=== PATIENT | male | born 1975 ===

== ENCOUNTER 2022-06-07 15:52 | Emergency (ER) | payer SELFPAY ==
[~2022-06-07] VITALS: Ht 160 cm; Wt 72.5 kg
[2022-06-07 16:18] LABS: BILIRUBIN,URINE NEGATIVE (NEGATIVE); CLARITY,URINE CLEAR; COLOR,URINE YELLOW; GLUCOSE, URINE (UA) NEGATIVE (NEGATIVE); KETONES,URINE NEGATIVE (NEGATIVE); LEUKOCYTE ESTERASE ,URINE TRACE (NEGATIVE); NITRITE,URINE NEGATIVE (NEGATIVE); PROTEIN,URINE NEGATIVE (NEGATIVE)
[2022-06-07 16:26] LABS: BACTERIA,URINE NEGATIVE /HPF; RBC,URINE 0-2 /HPF
[2022-06-07] MEDS ORDERED: IOHEXOL 350 MG/ML 100 ML (OMNIPAQUE 350) VIAL IV ONE (16:30)
[2022-06-07] MEDS ORDERED: NS 100 ML (IVPB) BAG IV ONE (16:30)
--- NOTE | 2022-06-07 16:30 | ED Abdominal Pain ---
General Chief Complaint: Abdominal/GI Problems Stated Complaint: ABD PAIN Nursing Triage Note: PT AMB TO [facility] 3 WITH BROTHER. BROTHER TRANSLATES FOR PT. PT STATED THAT HE HAS HAD ABD PAIN FOR 2 WEEKS AND HAS PROGRESSIVELY GOTTEN WORSE. Source of Information: Patient Exam Limitations: No Limitations History of Present Illness Date Seen by Provider: Jun 07, 2022 Time Seen by Provider: 16:30 Allergies and Home Medications Allergies Coded Allergies: No Allergy Information Available (Unverified , 06/07/22) Physical Exam Vital Signs Vital Signs - First Documented 06/07/22 06/07/22 16:00 17:44 Temp 38.8 Pulse 89 Resp 20 B/P (MAP) 134/69 (90) Pulse Ox 98 O2 Delivery Room Air Capillary Refill : Less Than 3 Seconds Height/Weight/BMI Height: '" Weight: lbs. oz. kg; 28.00 BMI Method: Progress/Results/Core Measures Results/Orders Lab Results Laboratory Tests Test 06/07/22 16:10 06/07/22 16:23 06/07/22 16:40 Range/Units Urine Color YELLOW Urine Clarity CLEAR Urine pH 7.0 5-9 Urine Specific [place] 1.010 L 1.016-1.022 Urine Protein NEGATIVE NEGATIVE Urine Glucose (UA) NEGATIVE NEGATIVE Urine Ketones NEGATIVE NEGATIVE Urine Nitrite NEGATIVE NEGATIVE Urine Bilirubin NEGATIVE NEGATIVE Urine Urobilinogen 0.2 < = 1.0 MG/DL Urine Leukocyte Esterase TRACE H NEGATIVE Urine RBC (Auto) NEGATIVE NEGATIVE Urine RBC 0-2 /HPF Urine WBC 2-5 /HPF Urine Squamous Epithelial Cells NONE /HPF Urine Renal Epithelial Cells NONE /HPF Urine Crystals NONE /LPF Urine Bacteria NEGATIVE /HPF Urine Casts NONE /LPF Urine Mucus NEGATIVE /LPF Urine Culture Indicated YES White Blood Count 14.6 H 4.3-11.0 10^3/uL Red Blood Count 4.90 4.30-5.52 10^6/uL Hemoglobin 14.3 13.3-17.7 g/dL Hematocrit 42 40-54 % Mean Corpuscular Volume 86 80-99 fL Mean Corpuscular Hemoglobin 29 25-34 pg Mean Corpuscular Hemoglobin Concent 34 32-36 g/dL Red Cell Distribution Width 12.8 10.0-14.5 % Platelet Count 331 130-400 10^3/uL Mean Platelet Volume 9.5 9.0-12.2 fL Immature Granulocyte % (Auto) 0 % Neutrophils (%) (Auto) 75 42-75 % Lymphocytes (%) (Auto) 13 12-44 % Monocytes (%) (Auto) 12 0-12 % Eosinophils (%) (Auto) 0 0-10 % Basophils (%) (Auto) 0 0-10 % Neutrophils # (Auto) 10.9 H 1.8-7.8 10^3/uL Lymphocytes # (Auto) 1.9 1.0-4.0 10^3/uL Monocytes # (Auto) 1.7 H 0.0-1.0 10^3/uL Eosinophils # (Auto) 0.0 0.0-0.3 10^3/uL Basophils # (Auto) 0.1 0.0-0.1 10^3/uL Immature Granulocyte # (Auto) 0.0 0.0-0.1 10^3/uL Neutrophils % (Manual) 79 % Lymphocytes % (Manual) 10 % Monocytes % (Manual) 11 % Blood Morphology Comment NORMAL Fibrinogen 835 H 221-496 MG/DL D-Dimer 3.07 H 0.00-0.49 UG/ML Sodium Level 135 135-145 MMOL/L Potassium Level 3.7 3.6-5.0 MMOL/L Chloride Level 99 98-107 MMOL/L Carbon Dioxide Level 20 L 21-32 MMOL/L Anion Gap 16 H 5-14 MMOL/L Blood Urea Nitrogen 19 H 7-18 MG/DL Creatinine 1.40 H 0.60-1.30 MG/DL Estimat Glomerular Filtration Rate 63 BUN/Creatinine Ratio 14 Glucose Level 81 70-105 MG/DL Calcium Level 9.6 8.5-10.1 MG/DL Corrected Calcium 9.4 8.5-10.1 MG/DL Total Bilirubin 0.8 0.1-1.0 MG/DL Aspartate Amino Transf (AST/SGOT) 18 5-34 U/L Alanine Aminotransferase (ALT/SGPT) 31 0-55 U/L Alkaline Phosphatase 80 40-136 U/L Troponin I < 0.028 <0.028 NG/ML C-Reactive Protein High Sensitivity 15.17 H 0.00-0.50 MG/DL Total Protein 8.4 H 6.4-8.2 GM/DL Albumin 4.2 3.2-4.5 GM/DL Triglycerides Level 106 <150 MG/DL Cholesterol Level 158 < 200 MG/DL LDL Cholesterol Direct 107 1-129 MG/DL VLDL Cholesterol 21 5-40 MG/DL HDL Cholesterol 34 L 40-60 MG/DL Lipase 28 8-78 U/L SARS-CoV-2 RNA (RT-PCR) Not Detected Not Detecte My Orders Orders - PANCHO ELIZALDE [employer] Ua Culture If Indicated (06/07/22 15:55) Ed Iv/Invasive Line Start (06/07/22 16:13) Cbc With Automated Diff (06/07/22 16:13) Comprehensive Metabolic Panel (06/07/22 16:13) Lipase (06/07/22 16:13) Ekg Tracing (06/07/22 16:13) Troponin I [place] (06/07/22 16:13) Ct Abdomen/Pelvis W (06/07/22 16:13) Hs C Reactive Protein (06/07/22 16:13) Covid 19 Inhouse Test (06/07/22 16:13) Lipid Panel (06/07/22 16:13) Iohexol Injection (Omnipaque 350 Mg/Ml 1 (06/07/22 16:30) Ns (Ivpb) (Sodium Chloride 0.9% Ivpb Bag (06/07/22 16:30) Urine Culture (06/07/22 16:10) Fentanyl Inj (Sublimaze Injection) (06/07/22 16:45) Manual Differential (06/07/22 16:23) Ondansetron Injection (Zofran Injectio (06/07/22 16:45) Ns Iv 1000 Ml (Sodium Chloride 0.9%) (06/07/22 17:15) Ketorolac Injection (Toradol Injection) (06/07/22 17:45) Fibrinogen (06/07/22 18:04) Fibrin Degradation Products (06/07/22 18:32) Medications Given in ED Current Medications Medications Dose Ordered Sig/[place] Route Start Time Stop Time Status Last Admin Dose Admin Fentanyl Citrate 50 mcg ONCE ONCE IVP 06/07/22 16:45 06/07/22 16:46 DC 06/07/22 16:46 50 MCG Iohexol 100 ml ONCE ONCE IV 06/07/22 16:30 06/07/22 16:31 DC 06/07/22 17:23 80 ML Ketorolac Tromethamine 30 mg ONCE ONCE IVP 06/07/22 17:45 06/07/22 17:46 DC 06/07/22 17:44 30 MG Ondansetron HCl 4 mg ONCE ONCE IVP 06/07/22 16:45 06/07/22 16:46 DC 06/07/22 16:46 4 MG Sodium Chloride 100 ml ONCE ONCE IV 06/07/22 16:30 06/07/22 16:31 DC 06/07/22 17:23 77 ML Sodium Chloride 1,000 ml @ 999 mls/hr ONCE ONCE IV 06/07/22 17:15 06/07/22 18:15 UNV 06/07/22 17:30 999 MLS/HR Vital Signs/I&O 06/07/22 06/07/22 16:00 17:44 Temp 38.8 Pulse 89 Resp 20 B/P (MAP) 134/69 (90) Pulse Ox 98 O2 Delivery Room Air Blood Pressure Mean: 90 Departure Impression Primary Impression: Abdominal pain Disposition: HOME, SELF-CARE Condition: Improved Departure-Patient Inst. Decision time for Depature: 18:51 Referrals: NO,LOCAL PHYSICIAN (PCP/Family) Primary Care Physician Patient Instructions: Abdominal Pain, Adult ED Add. Discharge Instructions: Plan: 1. I recommend you establish with a primary care provider as you will need additional workup. Please consider filling out peer financial counselor through the hospital for any additional referrals or workup that may be needed. 2. [facility] has many resources available. Please call [phone] to schedule close follow up. Would like you to be seen next week. 3. Take a full strength Aspirin 325mg daily. May take with food if this causes GI upset. 4. We will culture your urine and cover with antibiotics until urine culture results. This typically takes 3 days. If we need to adjust any of your medications we will notify you via telephone. 5. Your CT of your abdomen showed concerns for possible renal infarcts. Some additional test that may help further evaluate your symptoms would be a telemetry monitor, vasculitis disorders, coagulation disorders, renal ultrasound, or MRI could be ordered at the discretion of your primary care provider. 6. Make sure you drink plenty of fluids to flush contrast from your kidneys. Drink plenty of water tonight. 7. Return to ER if you develop any new, concerning, or worsening symptoms. All discharge instructions reviewed with patient and/or family. Voiced understanding. Scripts Cefuroxime Axetil (Cefuroxime) 250 Mg Tablet 250 MG PO BID for 10 Days, #20 TAB 0 Refills Prov: PANCHO ELIZALDE [employer] 06/07/22 Aspirin (Aspirin EC) 325 Mg Tablet.dr 325 MG PO DAILY for 30 Days, #30 TAB 0 Refills Prov: PANCHO ELIZALDE [employer] 06/07/22 PANCHO ELIZALDE [employer] Jun 07, 2022 16:30
[2022-06-07 16:31] LABS: BASOPHILS # (AUTO) 0.1 10^3/uL (0.0-0.1); BASOPHILS % (AUTO) 0 % (0-10); EOSINOPHILS % (AUTO) 0 % (0-10); HEMATOCRIT 42 % (40-54); HEMOGLOBIN 14.3 g/dL (13.3-17.7); LYMPHOCYTES # (AUTO) 1.9 10^3/uL (1.0-4.0); LYMPHOCYTES % (AUTO) 13 % (12-44); MEAN CORPUSCULAR HEMOGLOBIN 29 pg (25-34); MEAN CORPUSCULAR HGB CONC 34 g/dL (32-36); MEAN CORPUSCULAR VOLUME 86 fL (80-99); MEAN PLATELET VOLUME 9.5 fL (9.0-12.2); MONOCYTES # (AUTO) 1.7 10^3/uL (0.0-1.0); MONOCYTES % (AUTO) 12 % (0-12); NEUTROPHILS # (AUTO) 10.9 10^3/uL (1.8-7.8); NEUTROPHILS % (AUTO) 75 % (42-75); PLATELET COUNT 331 10^3/uL (130-400); WHITE BLOOD COUNT 14.6 10^3/uL (4.3-11.0)
[2022-06-07] MEDS ORDERED: ONDANSETRON 4 MG/2 ML (SDV) Z0FRAN IVP ONE (16:45)
[2022-06-07] MEDS ORDERED: fentaNYL INJ 100 MCG/2 ML AMP IVP ONE (16:45)
[2022-06-07 16:50] LABS: ALBUMIN 4.2 GM/DL (3.2-4.5); CHLORIDE 99 MMOL/L (98-107); POTASSIUM 3.7 MMOL/L (3.6-5.0); SODIUM 135 MMOL/L (135-145)
[2022-06-07 16:51] LABS: CALCIUM 9.6 MG/DL (8.5-10.1); LYMPHOCYTES % (MANUAL) 10 %; MONOCYTES % (MANUAL) 11 %; NEUTROPHILS % (MANUAL) 79 %; RBC MORPH NORMAL
[2022-06-07 16:52] LABS: TRIGLYCERIDES 106 MG/DL (<150); VLDL CHOLESTEROL 21 MG/DL (5-40)
[2022-06-07 16:53] LABS: GLUCOSE 81 MG/DL (70-105); TOTAL PROTEIN 8.4 GM/DL (6.4-8.2)
[2022-06-07 16:54] LABS: BILIRUBIN,TOTAL 0.8 MG/DL (0.1-1.0); CARBON DIOXIDE 20 MMOL/L (21-32)
[2022-06-07 16:56] LABS: ALKALINE PHOSPHATASE 80 U/L (40-136); GFR ESTIMATED 63
[2022-06-07 16:57] LABS: BUN/CREATININE RATIO 14; CHOLESTEROL 158 MG/DL (< 200)
[2022-06-07 16:58] LABS: HDL CHOLESTEROL 34 MG/DL (40-60)
[2022-06-07 16:59] LABS: ALANINE AMINOTRANSFERASE 31 U/L (0-55)
[2022-06-07 17:00] LABS: LIPASE 28 U/L (8-78)
[2022-06-07] MEDS ORDERED: NS IV 1000 ML 1,000 ML IV ONE (17:15)
[2022-06-07] MEDS ORDERED: NS IV 1000 ML 1,000 ML ONE (17:26)
[2022-06-07] MEDS ORDERED: KETOROLAC 30 MG/ML VIAL IVP ONE (17:45)
--- NOTE | 2022-06-07 17:56 | Diagnostic Imaging Report ---
PROCEDURE: CT abdomen and pelvis with contrast. TECHNIQUE: Multiple contiguous axial images were obtained through the abdomen and pelvis after administration of intravenous contrast. Auto Exposure Controls were utilized during the CT exam to meet ALARA standards for radiation dose reduction. All CT scans use one or more of the following dose optimizing techniques: automated exposure control, MA and/or KvP adjustment based on patient size and exam type or iterative reconstruction. DATE: June 07, 2022. COMPARISON: None. INDICATION: 47-year-old male, abdominal pain for two weeks which is progressively worsening. FINDINGS: The visualized portions of the lung bases are clear. The heart is not enlarged. There is no pericardial effusion. The liver is unremarkable in size and contour. There is no identified liver lesion. The main, right and left portal veins are patent. The gallbladder is contracted. There is no intrahepatic or extrahepatic bile duct dilation. The main pancreatic duct is not abnormally dilated. Unremarkable appearance of the pancreatic parenchyma. The spleen is normal in size. The adrenal glands are unremarkable. There is heterogeneous altered enhancement of the right kidney. The left kidney is unremarkable in appearance. The urinary collecting systems are not distended. There is no identified renal or ureteral stone. The urinary bladder is unremarkable. The intestinal tract is not distended. The appendix is unremarkable and is well seen. There is no free intraperitoneal air. There is no drainable fluid collection. There is no free fluid in the abdomen or pelvis. There are atherosclerotic calcifications. There is no identified abnormally enlarged lymph node in the abdomen or pelvis meeting CT size criteria for adenopathy. There are mild bilateral sacroiliac degenerative changes. There are degenerative changes of the spine. There is no identified acute bony abnormality. IMPRESSION: CT abdomen and pelvis: 1. Multifocal patchy altered enhancement of the right kidney. This most likely reflects acute pyelonephritis or renal infarcts. Recommend correlation with urinalysis. 2. No hydronephrosis. Dictated by: Dictated on workstation # [id number]
[2022-06-07] MEDS ORDERED: CEFU250T80 PO (19:03)
[2022-06-07] MEDS ORDERED: ASPI325T32 PO (19:03)
[2022-06-07 19:11] VITALS: BP 108/57
== END 2022-06-07 19:12 | disposition home or self-care (01) ==
LOC: ER 15:56
DX: R10.9 Unspecified abdominal pain (principal); Z20.822 Contact with and (suspected) exposure to COVID-19; Z28.311 Partially vaccinated for COVID-19
CPT/HCPCS: 36415; 74177; 80053; 80061; 81000; 83690; 84484; 85007; 85027; 85379; 85384; 86141; 87077; 87088; 87184; 87186; 87636; 93005